=== PATIENT | male | born 1960 | race Caucasian/White ===

== ENCOUNTER 2017-01-19 09:58 | Emergency (ER) | payer BC, OTHER ==
[~2017-01-19] VITALS: Ht 185.4 cm; Wt 85.5 kg
[2017-01-19 11:16] LABS: BILIRUBIN,URINE NEGATIVE (NEG); GLUCOSE,URINE NEGATIVE (NEG); NITRITE,URINE NEGATIVE (NEG); PH,URINE 6.5; PROTEIN,URINE NEGATIVE (NEG-TRACE); UROBILINOGEN,URINE 0.2 mg/dL (0.2 mg/dL)
[2017-01-19 11:45] LABS: BACTERIA,URINE 0 /HPF (0-FEW); WBC,URINE 0 /HPF (0-4)
--- NOTE | 2017-01-19 12:23 | PHYS DOC ---
Past Medical History Past Medical History: Hypertension, MRSA, Other Additional Past Medical Histor: BPH,URINARY RETENTION Past Surgical History: Other Additional Past Surgical Histo: I&D ABSCESS,DENTAL Additional Information: 1 PPD Alcohol Use: Heavy Additional Information: 2 DRINKS PER NIGHT Drug Use: None Adult General Chief Complaint Chief Complaint: URINARY RETENTION HPI HPI 57-year-old male presenting to the emergency department today with urinary retention for 3 days. He has had pain in the suprapubic region that is sharp moderate intermittent and worsening over the past 24-38 hours. He has had decreased urine output as well. He reports a history of BPH. Otherwise he denies nausea vomiting fevers or chills. Review of systems is negative for chest pain shortness of breath. Negative for nausea vomiting. All other review of systems is negative unless otherwise noted in history of present illness. Review of Systems Review of Systems SEE ABOVE. Allergies Allergies Allergies Coded Allergies Type Severity Reaction Last Updated Verified No Known Drug Allergies 01/19/17 No Physical Exam Physical Exam Constitutional: Well developed, well nourished, no acute distress, non-toxic appearance. HENT: Normocephalic, atraumatic, bilateral external ears normal, oropharynx moist, no oral exudates, nose normal. [] Eyes: PERRLA, EOMI, conjunctiva normal, no discharge. Neck: Normal range of motion, no tenderness, supple, no stridor. [] Cardiovascular:Heart rate regular rhythm, no murmur [] Lungs & Thorax: Bilateral breath sounds clear to auscultation Abdomen: Abdominal exam performed after Dominguez placement and relief of pain shows nontender abdomen. Soft. Negative McBurney's point. Negative Ruby sign. Skin: Warm, dry, no erythema, no rash. [] Back: No tenderness, no CVA tenderness. Extremities: No tenderness, no cyanosis, no clubbing, ROM intact, no edema. Neurologic: Alert and oriented X 3, normal motor function, normal sensory function, no focal deficits noted. [] Psychologic: Affect normal, judgement normal, mood normal. [] Current Patient Data Vital Signs Vital Signs Date Time Temp Pulse Resp B/P Pulse Ox O2 Delivery O2 Flow Rate FiO2 01/19/17 10:07 97.6 105 22 181/113 100 Room Air 97.6 Lab Values Laboratory Tests Test 01/19/17 10:35 Urine Collection Type U cath Urine Color Yellow Urine Clarity Clear Urine pH 6.5 Urine Specific [place] 1.010 Urine Protein Negativemg/dL (NEG-TRACE) Urine Glucose (UA) Negativemg/dL (NEG) Urine Ketones (Stick) Tracemg/dL (NEG) Urine Blood Negative (NEG) Urine Nitrite Negative (NEG) Urine Bilirubin Negative (NEG) Urine Urobilinogen Dipstick 0.2mg/dL (0.2 mg/dL) Urine Leukocyte Esterase Negative (NEG) Urine RBC 1-2/HPF (0-2) Urine WBC 0/HPF (0-4) Urine Squamous Epithelial Cells None/LPF Urine Bacteria 0/HPF (0-FEW) EKG EKG [] Radiology/Procedures Radiology/Procedures [] Course & Med Decision Making Course & Med Decision Making Pertinent Labs and Imaging studies reviewed. (See chart for details) [] 57-year-old male with BPH who came in with urinary retention. Dominguez placed. Patient's hypertension and tachycardia likely secondary to pain. Patient's pain and tachycardia improved upon placement of Dominguez catheter. He was feeling better. He was subsequent discharged home to follow-up with urology over the next 4-5 days. No clots in his urine. Dragon Disclaimer Dragon Disclaimer This electronic medical record was generated, in whole or in part, using a voice recognition dictation system. Departure Departure Impression: Primary Impression: Urinary retention Disposition: 01 HOME, SELF-CARE Condition: STABLE Referrals: BERTHA CAIN (PCP) MONTEZ LAINEZ DO Patient Instructions: Indwelling Urinary Catheter Care-Brief, Urinary Retention , Acute, Male Additional Instructions: Thank you for allowing us to participate in your care today. Followup with your primary care physician in 3 days if your symptoms do not improve. If you do not have a primary care provider you can ask for a list of our primary care providers. Return to the emergency department you have any new or concerning findings. This should be evaluated by the primary care physician and any necessary consulting services for continued management within a few days after discharge. Return to emergency room if you have any new or concerning symptoms including but not limited to fever, chills, nausea, vomiting, intractable pain, any new rashes, chest pain, shortness of air, uncontrolled bleeding, difficulty breathing, and/or vision loss. LILIANA TONY MD Jan 19, 2017 12:23
[2017-01-19 12:24] VITALS: BP 177/109
== END 2017-01-19 12:36 | disposition home or self-care (01) ==
LOC: ER 09:58
DX: R33.9 Retention of urine, unspecified (principal); R10.30 Lower abdominal pain, unspecified; N40.0 Benign prostatic hyperplasia without lower urinary tract symptoms; I10 Essential (primary) hypertension; F17.210 Nicotine dependence, cigarettes, uncomplicated; F10.10 Alcohol abuse, uncomplicated; Z86.14 Personal history of Methicillin resistant Staphylococcus aureus infection
CPT/HCPCS: 51702; 81001; 99284-25

== ENCOUNTER → 2017-02-17 | Outpatient (CLI) | payer BC ==
[2017-01-19 12:24] VITALS: BP 177/109
--- NOTE | 2017-02-17 16:47 | RAD ---
Renal ultrasound, 02/17/2017: History: Benign prostatic hypertrophy. The right kidney measures 12.4 cm in length, while the left kidney measures 11.9 cm. There is no evidence of hydronephrosis or a renal mass. The renal parenchymal echogenicity is within normal limits. Limited views of the urinary bladder demonstrate an impression upon its base due to an enlarged prostate gland. It measures 5.4 cm in width. The bladder is otherwise unremarkable. IMPRESSION: 1. No renal abnormality is detected. 2. Moderate nonspecific prostatic enlargement.
== END | disposition home or self-care (01) ==
LOC: US 16:09
PROVIDERS: ATTEND Nurse Practitioner Occupational Health
DX: N40.0 Benign prostatic hyperplasia without lower urinary tract symptoms (principal)
CPT/HCPCS: 76770

== ENCOUNTER 2017-09-03 02:24 | Emergency (ER) | payer BC ==
[~2017-09-03] VITALS: Ht 182.9 cm; Wt 79.4 kg
[2017-09-03 02:35] VITALS: BP 156/115
--- NOTE | 2017-09-03 02:51 | PHYS DOC ---
Past Medical History Past Medical History: Hypertension, MRSA, Other Additional Past Medical Histor: BPH,URINARY RETENTION Past Surgical History: Other Additional Past Surgical Histo: I&D ABSCESS,DENTAL Alcohol Use: Heavy Drug Use: None Adult General Chief Complaint Chief Complaint: GROIN PAIN HPI HPI Patient is a 57 year old male who presents with 12 hour history of urinary retention and increased suprapubic pain moderate in severity. Prior history of requiring a Dominguez catheter. Takes Flomax daily and see his urologist. Denies surgery of the prostate. Denies fever or flank pain. Reports several days of foul-smelling urine. Review of Systems Review of Systems Constitutional: Denies fever or chills [] Eyes: Denies change in visual acuity, redness, or eye pain [] HENT: Denies nasal congestion or sore throat [] Respiratory: Denies cough or shortness of breath [] Cardiovascular: No additional information not addressed in HPI [] GI: Denies abdominal pain, nausea, vomiting, bloody stools or diarrhea [] : Denies dysuria or hematuria [] Musculoskeletal: Denies back pain or joint pain [] Integument: Denies rash or skin lesions [] Neurologic: Denies headache, focal weakness or sensory changes [] Endocrine: Denies polyuria or polydipsia [] Allergies Allergies Allergies Coded Allergies Type Severity Reaction Last Updated Verified No Known Drug Allergies 01/19/17 No Physical Exam Physical Exam Constitutional: Well developed, well nourished, no acute distress, non-toxic appearance. [] HENT: Normocephalic, atraumatic, bilateral external ears normal, oropharynx moist, no oral exudates, nose normal. [] Eyes: PERRLA, EOMI, conjunctiva normal, no discharge. [] Neck: Normal range of motion, no tenderness, supple, no stridor. [] Cardiovascular:Heart rate regular rhythm, no murmur [] Lungs & Thorax: Bilateral breath sounds clear to auscultation [] Abdomen: Bowel sounds normal, soft, mild suprapubic tenderness, no masses, no pulsatile masses. [] Skin: Warm, dry, no erythema, no rash. [] Back: No tenderness, no CVA tenderness. [] Extremities: No tenderness, no cyanosis, no clubbing, ROM intact, no edema. [] Neurologic: Alert and oriented X 3, normal motor function, normal sensory function, no focal deficits noted. [] Psychologic: Affect normal, judgement normal, mood normal. [] Current Patient Data Vital Signs Vital Signs Date Time Temp Pulse Resp B/P (MAP) Pulse Ox O2 Delivery O2 Flow Rate FiO2 09/03/17 02:35 97.4 103 18 97 Room Air 97.4 Lab Values Laboratory Tests Test 09/03/17 02:53 Urine Collection Type U cath Urine Color Yellow Urine Clarity Clear Urine pH 6.5 Urine Specific [place] <=1.005 Urine Protein Negative mg/dL (NEG-TRACE) Urine Glucose (UA) Negative mg/dL (NEG) Urine Ketones (Stick) Negative mg/dL (NEG) Urine Blood Negative (NEG) Urine Nitrite Negative (NEG) Urine Bilirubin Negative (NEG) Urine Urobilinogen Dipstick 0.2 mg/dL (0.2 mg/dL) Urine Leukocyte Esterase Negative (NEG) Urine RBC 0 /HPF (0-2) Urine WBC 0 /HPF (0-4) Urine Squamous Epithelial Cells Occ /LPF Urine Bacteria 0 /HPF (0-FEW) EKG EKG [] Radiology/Procedures Radiology/Procedures [] Course & Med Decision Making Course & Med Decision Making Pertinent Labs and Imaging studies reviewed. (See chart for details) Plan check urinalysis and placed a Dominguez catheter. More than a liter of urine returned. No infection on urinalysis but given foul-smelling urine and probably inflammation of the prostate we will place on a fluoroquinolone for one week. he will be sent home with a leg bag and recommend follow-up with his urologist.] Dragon Disclaimer Dragon Disclaimer This electronic medical record was generated, in whole or in part, using a voice recognition dictation system. Departure Departure Impression: Primary Impression: Urinary retention Disposition: HOME, SELF-CARE Condition: IMPROVED Referrals: BERTHA CAIN (PCP) Patient Instructions: Dominguez Catheter Care, Adult, Urinary Retention, Acute, Male, [id number] Scripts Ciprofloxacin Hcl (CIPRO) 500 Mg Tablet 1 TAB PO BID for 7 Days, #14 TAB Prov: BELLE THOMAS MD 09/03/17 BELLE THOMAS MD Sep 03, 2017 02:51
[2017-09-03 03:01] LABS: BILIRUBIN,URINE NEGATIVE (NEG); GLUCOSE,URINE NEGATIVE (NEG); NITRITE,URINE NEGATIVE (NEG); PH,URINE 6.5; PROTEIN,URINE NEGATIVE (NEG-TRACE); UROBILINOGEN,URINE 0.2 mg/dL (0.2 mg/dL)
[2017-09-03 03:34] LABS: BACTERIA,URINE 0 /HPF (0-FEW); RBC,URINE 0 /HPF (0-2); WBC,URINE 0 /HPF (0-4)
[2017-09-03 03:35] LABS: SQUAMOUS EPITHELIAL CELL,UR OCC /LPF
[2017-09-03] MEDS ORDERED: CIPR500T94 PO (03:39)
== END 2017-09-03 03:55 | disposition home or self-care (01) ==
LOC: ER 02:24
DX: R33.9 Retention of urine, unspecified (principal); R10.30 Lower abdominal pain, unspecified; I10 Essential (primary) hypertension; N40.0 Benign prostatic hyperplasia without lower urinary tract symptoms; Z86.14 Personal history of Methicillin resistant Staphylococcus aureus infection
CPT/HCPCS: 51702; 81001; 99284-25

== ENCOUNTER 2018-02-22 00:52 | Emergency (ER) | payer BC ==
[2018-02-22 01:13] LABS: BILIRUBIN,URINE NEGATIVE (NEG); CLARITY,URINE CLEAR; COLOR,URINE YELLOW; GLUCOSE,URINE NEGATIVE (NEG); NITRITE,URINE NEGATIVE (NEG); PROTEIN,URINE NEGATIVE (NEG-TRACE); UROBILINOGEN,URINE 0.2 mg/dL (0.2 mg/dL)
[2018-02-22 01:21] LABS: BACTERIA,URINE 0 /HPF (0-FEW); RBC,URINE 0 /HPF (0-2); SQUAMOUS EPITHELIAL CELL,UR OCC /LPF; WBC,URINE 0 /HPF (0-4)
[2018-02-22] MEDS: TAMSULOSIN 0.4 MG CAP.ER.24H. PO (01:49)
== END 2018-02-22 01:50 | disposition home or self-care (01) ==
LOC: ER 00:52
DX: R33.9 Retention of urine, unspecified (principal); I10 Essential (primary) hypertension; N40.1 Benign prostatic hyperplasia with lower urinary tract symptoms; F10.10 Alcohol abuse, uncomplicated; F17.210 Nicotine dependence, cigarettes, uncomplicated; Z86.14 Personal history of Methicillin resistant Staphylococcus aureus infection
CPT/HCPCS: 51702; 81001; 99284-25

== ENCOUNTER 2018-02-25 12:01 | Emergency (ER) | payer BC ==
[2018-02-25] MEDS: IV NORMAL SALINE 1000ML BAG 1,000 ML IV (12:26)
[2018-02-25 12:27] LABS: ADD MAN DIFF? NO
[2018-02-25] MEDS ORDERED: 0.9 % SODIUM CHLORIDE 10 ML DISP.SYRIN. IV (12:30)
[2018-02-25 12:32] LABS: BASO # 0.1 x10^3/uL (0.0-0.2); BASO % 1 % (0-3); EOS # 0.1 x10^3/uL (0.0-0.7); EOS % 3 % (0-3); HEMATOCRIT 43.2 % (39.0-53.0); HEMOGLOBIN 14.8 g/dL (13.0-17.5); LYMPH # 1.5 x10^3/uL (1.0-4.8); LYMPH % 35 % (24-48); MEAN CORPUSCULAR HEMOGLOBIN 34 pg (25-35); MEAN CORPUSCULAR HGB CONC 34 g/dL (31-37); MEAN CORPUSCULAR VOLUME 98 fL (79-100); MONO # 0.4 x10^3/uL (0.0-1.1); MONO % 10 % (0-9); NEUT # 2.2 x10^3uL (1.8-7.7); NEUT % 51 % (31-73); PLATELET COUNT 225 x10^3/uL (140-400); RED CELL DISTRIBUTION WIDTH 12.5 % (11.5-14.5); WHITE BLOOD COUNT 4.3 x10^3/uL (4.0-11.0)
[2018-02-25 12:34] LABS: BILIRUBIN,URINE NEGATIVE (NEG); CLARITY,URINE CLEAR; GLUCOSE,URINE NEGATIVE (NEG); NITRITE,URINE NEGATIVE (NEG); PH,URINE 7.5; PROTEIN,URINE NEGATIVE (NEG-TRACE); UROBILINOGEN,URINE 0.2 mg/dL (0.2 mg/dL)
[2018-02-25 12:37] LABS: ANION GAP 6 (6-14); BLOOD UREA NITROGEN 12 mg/dL (8-26); CALCIUM 9.1 mg/dL (8.5-10.1); CARBON DIOXIDE 30 mmol/L (21-32); CHLORIDE 105 mmol/L (98-107); CREATININE 0.8 mg/dL (0.7-1.3); GFR 98.6; GLUCOSE 112 mg/dL (70-99); POTASSIUM 4.1 mmol/L (3.5-5.1); SODIUM 141 mmol/L (136-145)
[2018-02-25 12:42] LABS: COLOR,URINE COLORLESS
[2018-02-25 12:43] LABS: ALBUMIN 3.7 g/dL (3.4-5.0); ALK PHOS 54 U/L (46-116); ALT (SGPT) 41 U/L (16-63); AST (SGOT) 49 U/L (15-37); BACTERIA,URINE 0 /HPF (0-FEW); DIRECT BILIRUBIN 0.1 mg/dL (0.0-0.2); TOTAL BILIRUBIN 0.5 mg/dL (0.2-1.0); TOTAL PROTEIN 7.7 g/dL (6.4-8.2); WBC,URINE 0 /HPF (0-4)
[2018-02-25 12:50] LABS: LACTIC ACID 1.3 mmol/L (0.4-2.0)
== END 2018-02-25 13:36 | disposition home or self-care (01) ==
LOC: ER 12:01
DX: S37.30XA Unspecified injury of urethra, initial encounter (principal); I10 Essential (primary) hypertension; R31.9 Hematuria, unspecified; F10.20 Alcohol dependence, uncomplicated; Z86.14 Personal history of Methicillin resistant Staphylococcus aureus infection; X58.XXXA Exposure to other specified factors, initial encounter; Y93.89 Activity, other specified; Y99.8 Other external cause status; Y92.89 Other specified places as the place of occurrence of the external cause
CPT/HCPCS: 36415; 80048; 80076; 81001; 83605; 85025; 96360; 99284-25; J7030

== ENCOUNTER 2018-08-12 03:10 | Emergency (ER) | payer SELFPAY ==
[~2018-08-12] VITALS: Ht 182.9 cm; Wt 77.1 kg
[~2018-08-12 03:10] MED LIST: CIPR500T94 PO; TAMS0.4C97 PO
--- NOTE | 2018-08-12 03:28 | PHYS DOC ---
Past Medical History Past Medical History: Hypertension, MRSA, Other Additional Past Medical Histor: BPH,URINARY RETENTION Past Surgical History: Other Additional Past Surgical Histo: I&D ABSCESS,DENTAL Alcohol Use: Heavy Drug Use: None Adult General Chief Complaint Chief Complaint: URINARY RETENTION HPI HPI Patient is a 58-year-old male who presents to the emergency department for evaluation of urinary retention. He states he has history of an enlarged prostate, and has been out of his Flomax for the past 3 days. He states he has last urinated normally about 8 hours ago and has had some urinary dribbling since then, but reports some pelvic pressure, and the urge to urinate but the inability to do so. He denies any fevers or chills, nausea, vomiting, diarrhea, or any other abdominal pain. He has not had any fevers or chills. There are no alleviating or exacerbating factors to his symptoms. Review of Systems Review of Systems Constitutional: Denies fever or chills [] Eyes: Denies change in visual acuity, redness, or eye pain [] HENT: Denies nasal congestion or sore throat [] Respiratory: Denies cough or shortness of breath [] Cardiovascular: The patient denies any shortness of breath, chest pain, palpitations, or orthopnea [] GI: Denies abdominal pain, nausea, vomiting, bloody stools or diarrhea [] : Denies dysuria or hematuria. Reports urinary retention. [] Musculoskeletal: Denies back pain or joint pain [] Integument: Denies rash or skin lesions [] Neurologic: Denies headache, focal weakness or sensory changes [] Endocrine: Denies polyuria or polydipsia [] All other systems were reviewed and found to be within normal limits, except as documented in this note. Allergies Allergies Allergies Coded Allergies Type Severity Reaction Last Updated Verified No Known Drug Allergies 01/19/17 No Physical Exam Physical Exam PHYSICAL EXAM: CONSTITUTIONAL: Well developed, well nourished HEAD: normocephalic, atraumatic EENT: PERRL, EOMI. Conjunctivae normal color, sclerae non-icteric; moist mucous membranes. NECK: Supple, non-tender; no meningismus. LUNGS: Lungs CTA, breathing even and unlabored. Normal air movement. HEART: Regular rate and rhythm, no murmur CHEST: No deformity; non-tender ABDOMEN: There is tenderness to palpation in the lower midline abdomen, with some firmness suggestive of bladder distention. The remainder of the abdomen is soft, and non-tender, no masses or bruits. EXTREM: Normal ROM; no deformity, no calf tenderness. Normal pulses palpable in all extremities. There is no pedal edema. SKIN: No rash; no diaphoresis NEURO: Alert; normal speech and cognition; CN's grossly intact; strength grossly intact without focal deficit. BACK: No CVA TTP. GENITOURINARY: Normal external genitalia, without any testicular tenderness to palpation, or inguinal masses palpable. Current Patient Data Vital Signs Vital Signs Date Time Temp Pulse Resp B/P (MAP) Pulse Ox O2 Delivery O2 Flow Rate FiO2 08/12/18 03:18 98.4 106 22 146/93 (110) 97 Room Air 98.4 Lab Values Laboratory Tests Test 08/12/18 03:35 Urine Collection Type U cath Urine Color Yellow Urine Clarity Clear Urine pH 6.0 Urine Specific [place] 1.010 Urine Protein Negative mg/dL (NEG-TRACE) Urine Glucose (UA) Negative mg/dL (NEG) Urine Ketones (Stick) Negative mg/dL (NEG) Urine Blood Small (NEG) Urine Nitrite Negative (NEG) Urine Bilirubin Negative (NEG) Urine Urobilinogen Dipstick 0.2 mg/dL (0.2 mg/dL) Urine Leukocyte Esterase Negative (NEG) Urine RBC 0 /HPF (0-2) Urine WBC 0 /HPF (0-4) Urine Squamous Epithelial Cells Occ /LPF Urine Bacteria 0 /HPF (0-FEW) Urine Mucus Slight /LPF EKG EKG [] Radiology/Procedures Radiology/Procedures [] Course & Med Decision Making Course & Med Decision Making Pertinent Lab studies reviewed. (See chart for details) [4:45 AM: The patient's condition remains stable. He has had significant relief after Dominguez catheter was placed and he has output over thousand cc of urine. He will be discharged with a leg bag and a catheter in place, a refill of his Flomax, and the importance of close urology follow-up was discussed with the patient. Return precautions were discussed in detail.] Dragon Disclaimer Dragon Disclaimer This electronic medical record was generated, in whole or in part, using a voice recognition dictation system. Departure Departure Impression: Primary Impression: Urinary retention Disposition: HOME, SELF-CARE Condition: STABLE Referrals: BERTHA CAIN (PCP) ROGER MESSER MD Patient Instructions: Dominguez Catheter Care, Adult, Urinary Retention, Acute, Male Scripts Tamsulosin Hcl (FLOMAX) 0.4 Mg Cap.er.24h 1 CAP PO DAILY, #30 CAP 0 Refills Prov: ABIODUN GALVEZ MD 08/12/18 ABIODUN GALVEZ MD Aug 12, 2018 03:28
[2018-08-12 03:52] LABS: BILIRUBIN,URINE NEGATIVE (NEG); CLARITY,URINE CLEAR; COLOR,URINE YELLOW; NITRITE,URINE NEGATIVE (NEG); PROTEIN,URINE NEGATIVE (NEG-TRACE); UROBILINOGEN,URINE 0.2 mg/dL (0.2 mg/dL)
[2018-08-12 04:01] LABS: BACTERIA,URINE 0 /HPF (0-FEW); RBC,URINE 0 /HPF (0-2); SQUAMOUS EPITHELIAL CELL,UR OCC /LPF; WBC,URINE 0 /HPF (0-4)
[2018-08-12] MEDS ORDERED: TAMS0.4C97 PO (04:51)
[2018-08-12 05:19] VITALS: BP 138/78
== END 2018-08-12 05:19 | disposition home or self-care (01) ==
LOC: ER 03:10
DX: R33.9 Retention of urine, unspecified (principal); I10 Essential (primary) hypertension
CPT/HCPCS: 51702; 81001; 99284

== ENCOUNTER 2018-08-24 19:23 | Emergency (ER) | payer SELFPAY ==
[~2018-08-24] VITALS: Ht 182.9 cm; Wt 77.1 kg
[2018-08-24 19:26] VITALS: BP 138/103
[2018-08-24] MEDS ORDERED: ACETAMINOPHEN 325 MG TABLET. PO ONE (20:00)
[2018-08-24] MEDS ORDERED: IV NORMAL SALINE 1000ML BAG 1,000 ML IV ONE (20:00)
--- NOTE | 2018-08-24 20:15 | PHYS DOC ---
Past Medical History Past Medical History: Hypertension, MRSA, Other Additional Past Medical Histor: BPH,URINARY RETENTION Past Surgical History: Other Additional Past Surgical Histo: I&D ABSCESS,DENTAL Alcohol Use: Heavy Drug Use: None Adult General Chief Complaint Chief Complaint: BLOOD IN URINE HPI HPI 58-year-old male presents to ER with complaints of generalized body aches, 100 temperature yesterday, and blood in his urine. Patient was in the ER on 08/12/18 and had Hurtado catheter placed due to urinary retention. Patient reports yesterday his symptoms started where he started feeling fatigued and achy. Pt reports he has not f/u with urology d/t new job and not having time off. Pt reports he has hx of enlarged prostate and has had many foleys in past d/t urin. retention. Pt reports he has had UTIs after catheter placements and has concerns for this. Patient reports he did have 1 episode of vomiting last night. Patient reports he was able to eat today denying any nausea or vomiting. Patient denies large clots in his Hurtado catheter drainage bag. Patient denies any chest pain, palpitations, abdominal pain, or swelling in extremities. Review of Systems Review of Systems Constitutional: Reports fever 100.0 last night with generalized fatigue/ bodyaches Eyes: Denies change in visual acuity, redness, or eye pain [] HENT: Denies nasal congestion or sore throat [] Respiratory: Denies cough or shortness of breath [] Cardiovascular: Denies chest pain or palpitations GI: Denies abdominal pain, bloody stools or diarrhea. Reports has indwelling hurtado cath inplace since ER visit . Reports having what appears to be blood in hurtado drainage bag. Reports had nausea and 1 episode of vomiting last night : see above- denies decreased urinary output Musculoskeletal: Denies back/neck pain or joint pain [] Integument: Denies rash, swelling, or skin lesions [] Neurologic: Denies headache, focal weakness or sensory changes [] All other systems were reviewed and found to be within normal limits, except as documented in this note. Current Medications Current Medications Current Medications Medications (Trade) Dose Ordered Sig/Nuzhat Start Time Stop Time Status Last Admin Dose Admin Acetaminophen (Tylenol) 650 mg 1X ONCE 08/24/18 20:00 08/24/18 20:01 DC 08/24/18 20:28 650 MG Sodium Chloride 1,000 ml @ 1,000 mls/hr 1X ONCE 08/24/18 20:00 08/24/18 20:59 DC 08/24/18 20:25 1,000 MLS/HR Allergies Allergies Allergies Coded Allergies Type Severity Reaction Last Updated Verified No Known Drug Allergies 01/19/17 No Physical Exam Physical Exam Constitutional: Well developed, well nourished, no acute distress, non-toxic appearance. HENT: Normocephalic, atraumatic, bilateral ears normal, mucous membranes pink/ dry, no oral exudates, nose normal. [] Eyes: pupils equal/no nystagmus, conjunctiva normal, no discharge. [] Neck: Normal range of motion, no tenderness, supple Cardiovascular:Heart rate regular rhythm, no murmur [] Lungs & Thorax: Bilateral breath sounds clear to auscultation. Resp. equal/ nonlabored Abdomen: Bowel sounds normal, soft/nondistended/no rigidity, no tenderness, no masses, no pulsatile masses. [] Skin: Warm, dry, no erythema, no rash. [] Back: No tenderness, no CVA tenderness. [] Extremities: No tenderness, no cyanosis, no clubbing, ROM intact, no edema. [] Neurologic: Alert and oriented X 3, normal motor function, normal sensory function, no focal deficits noted. [] Psychologic: Affect normal, judgement normal, mood normal. [] Current Patient Data Vital Signs Vital Signs Date Time Temp Pulse Resp B/P (MAP) Pulse Ox O2 Delivery O2 Flow Rate FiO2 08/24/18 19:26 99.1 110 18 138/103 (115) 98 Room Air 99.1 Lab Values Laboratory Tests Test 08/24/18 20:20 08/24/18 21:12 White Blood Count 9.3 x10^3/uL (4.0-11.0) Red Blood Count 4.63 x10^6/uL (4.30-5.70) Hemoglobin 14.8 g/dL (13.0-17.5) Hematocrit 42.8 % (39.0-53.0) Mean Corpuscular Volume 92 fL (79-100) Mean Corpuscular Hemoglobin 32 pg (25-35) Mean Corpuscular Hemoglobin Concent 35 g/dL (31-37) Red Cell Distribution Width 13.1 % (11.5-14.5) Platelet Count 187 x10^3/uL (140-400) Neutrophils (%) (Auto) 65 % (31-73) Lymphocytes (%) (Auto) 23 % (24-48) L Monocytes (%) (Auto) 10 % (0-9) H Eosinophils (%) (Auto) 2 % (0-3) Basophils (%) (Auto) 1 % (0-3) Neutrophils # (Auto) 6.1 x10^3uL (1.8-7.7) Lymphocytes # (Auto) 2.1 x10^3/uL (1.0-4.8) Monocytes # (Auto) 0.9 x10^3/uL (0.0-1.1) Eosinophils # (Auto) 0.1 x10^3/uL (0.0-0.7) Basophils # (Auto) 0.1 x10^3/uL (0.0-0.2) Sodium Level 138 mmol/L (136-145) Potassium Level 4.0 mmol/L (3.5-5.1) Chloride Level 100 mmol/L (98-107) Carbon Dioxide Level 26 mmol/L (21-32) Anion Gap 12 (6-14) Blood Urea Nitrogen 9 mg/dL (8-26) Creatinine 1.0 mg/dL (0.7-1.3) Estimated GFR (Cockcroft-Gault) 76.2 BUN/Creatinine Ratio 9 (6-20) Glucose Level 88 mg/dL (70-99) Calcium Level 9.4 mg/dL (8.5-10.1) Total Bilirubin 0.8 mg/dL (0.2-1.0) Aspartate Amino Transferase (AST) 18 U/L (15-37) Alanine Aminotransferase (ALT) 26 U/L (16-63) Alkaline Phosphatase 68 U/L (46-116) Total Protein 7.3 g/dL (6.4-8.2) Albumin 3.7 g/dL (3.4-5.0) Albumin/Globulin Ratio 1.0 (1.0-1.7) Urine Collection Type Unknown Urine Color Yellow Urine Clarity Cloudy Urine pH 6.5 Urine Specific [place] <=1.005 Urine Protein 100 mg/dL (NEG-TRACE) Urine Glucose (UA) Negative mg/dL (NEG) Urine Ketones (Stick) Negative mg/dL (NEG) Urine Blood Large (NEG) Urine Nitrite Positive (NEG) Urine Bilirubin Negative (NEG) Urine Urobilinogen Dipstick 0.2 mg/dL (0.2 mg/dL) Urine Leukocyte Esterase Large (NEG) Urine RBC 6-10 /HPF (0-2) Urine WBC Tntc /HPF (0-4) Urine Squamous Epithelial Cells Few /LPF Urine Bacteria Many /HPF (0-FEW) Laboratory Tests 08/24/18 20:20 Laboratory Tests 08/24/18 20:20 EKG EKG [] Radiology/Procedures Radiology/Procedures [] Course & Med Decision Making Course & Med Decision Making Pertinent Labs reviewed. (See chart for details) Patient was evaluated in the ER for generalized fatigue and fever. Patient has indwelling Hurtado catheter which was placed on 08/12/18. In-depth conversation had with patient regarding need for follow-up appointment with urology within the next 1-2 days for further care. Patient had lab results which were unremarkable with NL WBCs at 9.3 BUN/Cr 9/1.0. UA was positive nitrates/lg blood and leuks and micro with RBCs 6-10 and WBCs tntc. Pt was given IV flds and tylenol on arrival and will be given IV Rocephin 1 gm. Dragon Disclaimer Dragon Disclaimer This electronic medical record was generated, in whole or in part, using a voice recognition dictation system. Departure Departure Impression: Primary Impression: UTI (urinary tract infection) Additional Impression: Fever Disposition: 01 HOME, SELF-CARE Condition: STABLE Referrals: BERTHA CAIN (PCP) Patient Instructions: Catheter-Associated Urinary Tract Infection FAQs - [place] Additional Instructions: As discussed it is important for you to follow-up with your urologist within the next 1-2 days for further care. Tylenol and/or ibuprofen as directed on container as needed for pain and fever control. Into medications as previously prescribed. Drink plenty of water. Scripts Levofloxacin (LEVAQUIN) 500 Mg Tablet 500 MG PO DAILY, #7 TAB 0 Refills Prov: MICHELLE MONTANA APRN 08/24/18 Problem Qualifiers MICHELLE MONTANA APRN Aug 24, 2018 20:15
[2018-08-24 20:32] LABS: BASO # 0.1 x10^3/uL (0.0-0.2); BASO % 1 % (0-3); EOS # 0.1 x10^3/uL (0.0-0.7); EOS % 2 % (0-3); HEMATOCRIT 42.8 % (39.0-53.0); HEMOGLOBIN 14.8 g/dL (13.0-17.5); LYMPH # 2.1 x10^3/uL (1.0-4.8); LYMPH % 23 % (24-48); MEAN CORPUSCULAR HEMOGLOBIN 32 pg (25-35); MEAN CORPUSCULAR HGB CONC 35 g/dL (31-37); MEAN CORPUSCULAR VOLUME 92 fL (79-100); MONO # 0.9 x10^3/uL (0.0-1.1); MONO % 10 % (0-9); NEUT # 6.1 x10^3uL (1.8-7.7); NEUT % 65 % (31-73); PLATELET COUNT 187 x10^3/uL (140-400); RED BLOOD COUNT 4.63 x10^6/uL (4.30-5.70); RED CELL DISTRIBUTION WIDTH 13.1 % (11.5-14.5); WHITE BLOOD COUNT 9.3 x10^3/uL (4.0-11.0)
[2018-08-24 20:35] LABS: CALCIUM 9.4 mg/dL (8.5-10.1); GFR 76.2
[2018-08-24 20:41] LABS: ALBUMIN 3.7 g/dL (3.4-5.0); TOTAL BILIRUBIN 0.8 mg/dL (0.2-1.0); TOTAL PROTEIN 7.3 g/dL (6.4-8.2)
[2018-08-24 21:22] LABS: BILIRUBIN,URINE NEGATIVE (NEG); CLARITY,URINE CLOUDY; COLOR,URINE YELLOW; NITRITE,URINE POSITIVE (NEG); PH,URINE 6.5; PROTEIN,URINE 100 mg/dL (NEG-TRACE); UROBILINOGEN,URINE 0.2 mg/dL (0.2 mg/dL)
[2018-08-24 21:33] LABS: BACTERIA,URINE MANY /HPF (0-FEW); SQUAMOUS EPITHELIAL CELL,UR FEW /LPF; WBC,URINE TNTC /HPF (0-4)
[2018-08-24] MEDS ORDERED: LEVO500T59 PO (21:43)
== END 2018-08-24 23:05 | disposition home or self-care (01) ==
LOC: ER 19:23
DX: N39.0 Urinary tract infection, site not specified (principal); R50.9 Fever, unspecified; M79.18 Myalgia, other site; R11.2 Nausea with vomiting, unspecified; I10 Essential (primary) hypertension; F10.20 Alcohol dependence, uncomplicated; Y90.9 Presence of alcohol in blood, level not specified
CPT/HCPCS: 36415; 51702; 80053; 81001; 85025; 87086; 96361; 96365; 99284; J0690; J7030; 87186

== ENCOUNTER 2018-12-17 16:57 | Emergency (ER) | payer SELFPAY ==
[~2018-12-17] VITALS: Ht 182.9 cm; Wt 81.6 kg
[~2018-12-17 16:57] MED LIST changes: +LEVO500T59 PO
[2018-12-17 17:30] LABS: BASO # 0.1 x10^3/uL (0.0-0.2); BASO % 1 % (0-3); EOS # 0.1 x10^3/uL (0.0-0.7); EOS % 1 % (0-3); HEMATOCRIT 45.6 % (39.0-53.0); HEMOGLOBIN 15.3 g/dL (13.0-17.5); LYMPH # 2.1 x10^3/uL (1.0-4.8); LYMPH % 23 % (24-48); MEAN CORPUSCULAR HEMOGLOBIN 32 pg (25-35); MEAN CORPUSCULAR HGB CONC 34 g/dL (31-37); MEAN CORPUSCULAR VOLUME 96 fL (79-100); MONO # 0.5 x10^3/uL (0.0-1.1); MONO % 5 % (0-9); NEUT # 6.3 x10^3uL (1.8-7.7); NEUT % 70 % (31-73); PLATELET COUNT 212 x10^3/uL (140-400); RED BLOOD COUNT 4.77 x10^6/uL (4.30-5.70); RED CELL DISTRIBUTION WIDTH 13.8 % (11.5-14.5)
[2018-12-17 17:39] LABS: CALCIUM 9.4 mg/dL (8.5-10.1); CREATININE 0.7 mg/dL (0.7-1.3); POTASSIUM 3.9 mmol/L (3.5-5.1)
[2018-12-17 17:44] LABS: ALBUMIN 3.7 g/dL (3.4-5.0); ALBUMIN/GLOBULIN RATIO 0.9 (1.0-1.7); TOTAL BILIRUBIN 0.4 mg/dL (0.2-1.0); TOTAL PROTEIN 7.7 g/dL (6.4-8.2)
[2018-12-17 17:45] LABS: BILIRUBIN,URINE NEGATIVE (NEG); CLARITY,URINE CLEAR; COLOR,URINE YELLOW; NITRITE,URINE NEGATIVE (NEG); PROTEIN,URINE NEGATIVE (NEG-TRACE); UROBILINOGEN,URINE 0.2 mg/dL (0.2 mg/dL)
[2018-12-17 18:00] LABS: BACTERIA,URINE 0 /HPF (0-FEW); RBC,URINE 0 /HPF (0-2); WBC,URINE OCC /HPF (0-4)
--- NOTE | 2018-12-17 18:13 | PHYS DOC ---
Past Medical History Past Medical History: Hypertension, MRSA, Other Additional Past Medical Histor: BPH,URINARY RETENTION Past Surgical History: Other Additional Past Surgical Histo: I&D ABSCESS,DENTAL Additional Information: 1 ppd for 20 years approx. Alcohol Use: Heavy Drug Use: None Adult General Chief Complaint Chief Complaint: URINARY RETENTION [facility] Patient is a 58 year old male who presents with urinary retention. The patient has had this happen several times in the past. The patient states that he is not taking his Flomax for several days. He states that his son had been having seizures and that he is out of work and unable to afford his Flomax. He denies fever, abdominal pain or nausea. Review of Systems Review of Systems Constitutional: Denies fever or chills [] Eyes: Denies change in visual acuity, redness, or eye pain [] HENT: Denies nasal congestion or sore throat [] Respiratory: Denies cough or shortness of breath [] Cardiovascular: No additional information not addressed in HPI [] GI: Denies abdominal pain, nausea, vomiting, bloody stools or diarrhea [] : See history of present illness Musculoskeletal: Denies back pain or joint pain [] Integument: Denies rash or skin lesions [] Neurologic: Denies headache, focal weakness or sensory changes [] Endocrine: Denies polyuria or polydipsia [] All other systems were reviewed and found to be within normal limits, except as documented in this note. Allergies Allergies Allergies Coded Allergies Type Severity Reaction Last Updated Verified No Known Drug Allergies 12/17/18 No Physical Exam Physical Exam Constitutional: Well developed, well nourished, no acute distress, non-toxic appearance. [] Cardiovascular:Heart rate regular rhythm, no murmur [] Lungs & Thorax: Bilateral breath sounds clear to auscultation [] Abdomen: Bowel sounds normal, soft, suprapubic tenderness, no masses, no pulsatile masses. [] Skin: Warm, dry, no erythema, no rash. [] Back: No tenderness, no CVA tenderness. [] Extremities: No tenderness, no cyanosis, no clubbing, ROM intact, no edema. [] Neurologic: Alert and oriented X 3, normal motor function, normal sensory function, no focal deficits noted. [] Psychologic: Affect normal, judgement normal, mood normal. [] Current Patient Data Vital Signs Vital Signs Date Time Temp Pulse Resp B/P (MAP) Pulse Ox O2 Delivery O2 Flow Rate FiO2 12/17/18 17:05 97.4 108 20 127/96 (106) 99 Room Air 97.4 Lab Values Laboratory Tests Test 12/17/18 17:18 12/17/18 17:30 White Blood Count 9.0 x10^3/uL (4.0-11.0) Red Blood Count 4.77 x10^6/uL (4.30-5.70) Hemoglobin 15.3 g/dL (13.0-17.5) Hematocrit 45.6 % (39.0-53.0) Mean Corpuscular Volume 96 fL (79-100) Mean Corpuscular Hemoglobin 32 pg (25-35) Mean Corpuscular Hemoglobin Concent 34 g/dL (31-37) Red Cell Distribution Width 13.8 % (11.5-14.5) Platelet Count 212 x10^3/uL (140-400) Neutrophils (%) (Auto) 70 % (31-73) Lymphocytes (%) (Auto) 23 % (24-48) L Monocytes (%) (Auto) 5 % (0-9) Eosinophils (%) (Auto) 1 % (0-3) Basophils (%) (Auto) 1 % (0-3) Neutrophils # (Auto) 6.3 x10^3uL (1.8-7.7) Lymphocytes # (Auto) 2.1 x10^3/uL (1.0-4.8) Monocytes # (Auto) 0.5 x10^3/uL (0.0-1.1) Eosinophils # (Auto) 0.1 x10^3/uL (0.0-0.7) Basophils # (Auto) 0.1 x10^3/uL (0.0-0.2) Sodium Level 139 mmol/L (136-145) Potassium Level 3.9 mmol/L (3.5-5.1) Chloride Level 102 mmol/L (98-107) Carbon Dioxide Level 22 mmol/L (21-32) Anion Gap 15 (6-14) H Blood Urea Nitrogen 4 mg/dL (8-26) L Creatinine 0.7 mg/dL (0.7-1.3) Estimated GFR (Cockcroft-Gault) 115.0 BUN/Creatinine Ratio 6 (6-20) Glucose Level 102 mg/dL (70-99) H Calcium Level 9.4 mg/dL (8.5-10.1) Total Bilirubin 0.4 mg/dL (0.2-1.0) Aspartate Amino Transferase (AST) 24 U/L (15-37) Alanine Aminotransferase (ALT) 23 U/L (16-63) Alkaline Phosphatase 52 U/L (46-116) Total Protein 7.7 g/dL (6.4-8.2) Albumin 3.7 g/dL (3.4-5.0) Albumin/Globulin Ratio 0.9 (1.0-1.7) L Urine Collection Type U cath Urine Color Yellow Urine Clarity Clear Urine pH 7.0 Urine Specific [place] 1.010 Urine Protein Negative mg/dL (NEG-TRACE) Urine Glucose (UA) Negative mg/dL (NEG) Urine Ketones (Stick) Negative mg/dL (NEG) Urine Blood Negative (NEG) Urine Nitrite Negative (NEG) Urine Bilirubin Negative (NEG) Urine Urobilinogen Dipstick 0.2 mg/dL (0.2 mg/dL) Urine Leukocyte Esterase Negative (NEG) Urine RBC 0 /HPF (0-2) Urine WBC Occ /HPF (0-4) Urine Bacteria 0 /HPF (0-FEW) Urine Mucus Mod /LPF Laboratory Tests 12/17/18 17:18 Laboratory Tests 12/17/18 17:18 EKG EKG [] Radiology/Procedures Radiology/Procedures [] Course & Med Decision Making Course & Med Decision Making Pertinent Labs and Imaging studies reviewed. (See chart for details) []Bladder scan showed over 1000 mL of urine retained. A Dominguez catheter was placed with immediate relief. The patient is being discharged home with a leg bag. He has been encouraged to fill his Flomax and to follow up with urology. He is in agreement with this plan. Dragon Disclaimer Dragon Disclaimer This electronic medical record was generated, in whole or in part, using a voice recognition dictation system. Departure Departure Impression: Primary Impression: Urinary retention Disposition: 01 HOME, SELF-CARE Condition: STABLE Referrals: BERTHA CAIN (PCP) HERRERA BENTON MD Patient Instructions: Urinary Retention, Acute, Male Additional Instructions: Follow-up with urology. Fill your Flomax prescription and take it as prescribed. If worsening return to the emergency department. GRICEL BARBER APRN Dec 17, 2018 18:13
[2018-12-17 18:59] VITALS: BP 123/81
== END 2018-12-17 19:10 | disposition home or self-care (01) ==
LOC: ER 16:57
DX: R33.8 Other retention of urine (principal); R56.9 Unspecified convulsions; I10 Essential (primary) hypertension; F17.200 Nicotine dependence, unspecified, uncomplicated; F10.20 Alcohol dependence, uncomplicated; Y90.9 Presence of alcohol in blood, level not specified
CPT/HCPCS: 36415; 51702; 80053; 81001; 85025; 99284

== ENCOUNTER 2019-07-30 18:36 | Emergency (ER) | payer SELFPAY ==
[~2019-07-30] VITALS: Ht 172.7 cm; Wt 81.6 kg
[2019-07-30 18:40] VITALS: BP 164/111
[2019-07-30 18:56] LABS: BILIRUBIN,URINE NEGATIVE (NEG); CLARITY,URINE CLEAR; COLOR,URINE YELLOW; NITRITE,URINE NEGATIVE (NEG); PROTEIN,URINE NEGATIVE (NEG-TRACE)
--- NOTE | 2019-07-30 18:59 | PHYS DOC ---
Past Medical History Past Medical History: Hypertension, MRSA, Other Additional Past Medical Histor: BPH,URINARY RETENTION Past Surgical History: Other Additional Past Surgical Histo: I&D ABSCESS,DENTAL Alcohol Use: Heavy Drug Use: None Adult General Chief Complaint Chief Complaint: URINARY RETENTION HPI HPI 59-year-old male with history of hypertension, BPH resisted emergency Department with complaints of urinary retention. Patient states his off of Flomax for at least 2 days if not longer. He describes abdominal pain, pressure. Denies any nausea or vomiting. States he does have some urine output however is dribbling. Patient denies chest pain, shortness of breath, fever, headache or visual changes. Review of Systems Review of Systems Constitutional: Denies fever or chills [] Respiratory: Denies cough or shortness of breath [] Cardiovascular: No additional information not addressed in HPI [] GI: Denies nausea, vomiting, + abdominal pressure. : Denies dysuria or hematuria [] Musculoskeletal: Denies back pain or joint pain [] Neurologic: Denies headache, focal weakness or sensory changes [] All other systems were reviewed and found to be within normal limits, except as documented in this note. Current Medications Current Medications Current Medications Medications (Trade) Dose Ordered Sig/Nuzhat Start Time Stop Time Status Last Admin Dose Admin Tamsulosin HCl (Flomax) 0.4 mg 1X ONCE 07/30/19 19:00 07/30/19 19:01 DC Allergies Allergies Allergies Coded Allergies Type Severity Reaction Last Updated Verified No Known Drug Allergies 12/17/18 No Physical Exam Physical Exam Constitutional: Well developed, well nourished, no acute distress, non-toxic appearance. [] Cardiovascular:Heart rate regular rhythm, no murmur [] Lungs & Thorax: Bilateral breath sounds clear to auscultation [] Abdomen: No distention, Bowel sounds normal, soft, no tenderness, no masses, no pulsatile masses. [] Skin: Warm, dry, no erythema, no rash. [] Back: No tenderness, no CVA tenderness. [] Extremities: No tenderness, no cyanosis, no edema. [] Neurologic: Alert and oriented X 3, no focal deficits noted. [] Psychologic: Affect normal, judgement normal, mood normal. [] Current Patient Data Lab Values Laboratory Tests Test 07/30/19 18:43 Urine Collection Type Unknown Urine Color Yellow Urine Clarity Clear Urine pH 6.0 Urine Specific [place] 1.020 Urine Protein Negative mg/dL (NEG-TRACE) Urine Glucose (UA) Negative mg/dL (NEG) Urine Ketones (Stick) Trace mg/dL (NEG) Urine Blood Negative (NEG) Urine Nitrite Negative (NEG) Urine Bilirubin Negative (NEG) Urine Urobilinogen Dipstick 1.0 mg/dL (0.2 mg/dL) Urine Leukocyte Esterase Negative (NEG) Urine RBC 0 /HPF (0-2) Urine WBC Rare /HPF (0-4) Urine Squamous Epithelial Cells None /LPF Urine Bacteria 0 /HPF (0-FEW) Urine Mucus Mod /LPF EKG EKG [] Radiology/Procedures Radiology/Procedures [] Course & Med Decision Making Course & Med Decision Making Pertinent Labs and Imaging studies reviewed. (See chart for details) []59-year-old male with history of hypertension, BPH resisted emergency Department with complaints of urinary retention. Patient states his off of Flomax for at least 2 days if not longer. He describes abdominal pain, pressure. Denies any nausea or vomiting. States he does have some urine output however is dribbling. Patient denies chest pain, shortness of breath, fever, headache or visual changes. Bladder scan reveals greater than 600 mL's of urine, catheter inserted with leg bag. Flomax 0.4 mg by mouth �1. Urinalysis reveals no evidence of urinary tract infection. Keep catheter in place, patient unable to fill prescription for Flomax, has one at the pharmacy pending awaiting more money. Plan discharge, recommend follow up with urology as an outpatient. Patient will be catheter discontinued. Return precautions provided. Dragon Disclaimer Dragon Disclaimer This electronic medical record was generated, in whole or in part, using a voice recognition dictation system. Departure Departure Impression: Primary Impression: Urinary retention Disposition: HOME, SELF-CARE Condition: STABLE Referrals: BERTHA CAIN (PCP) Patient Instructions: Urinary Retention, Acute, Male, [id number] Additional Instructions: Dominguez catheter inserted, leg bag in place Flomax 0.4 mg by mouth �1 given in the emergency department Recommend follow-up with urology as an outpatient [facility]. Return to the emergency department for fever, abdominal pain, altered mental status Tylenol or Motrin as needed Fill Flomax prescription when finances are available BROOKE CARPENTER MD Jul 30, 2019 18:59
[2019-07-30] MEDS ORDERED: TAMSULOSIN 0.4 MG CAP.ER.24H. PO ONE (19:00)
[2019-07-30 19:01] LABS: BACTERIA,URINE 0 /HPF (0-FEW); RBC,URINE 0 /HPF (0-2); WBC,URINE RARE /HPF (0-4)
== END 2019-07-30 19:40 | disposition home or self-care (01) ==
LOC: ER 18:36
DX: R33.9 Retention of urine, unspecified (principal); R10.9 Unspecified abdominal pain; I10 Essential (primary) hypertension; F10.20 Alcohol dependence, uncomplicated; Y90.9 Presence of alcohol in blood, level not specified; Z86.14 Personal history of Methicillin resistant Staphylococcus aureus infection
CPT/HCPCS: 51702; 81001; 99285-25